=== PATIENT | male | born 1945 | race Caucasian/White ===

== ENCOUNTER → 2018-01-24 | Emergency (ER) | payer MEDICARE, OTHER ==
[~2018-01-24] VITALS: Ht 175.3 cm; Wt 85.3 kg
[~2018-01-24] MED LIST: ASP81CT PO; ASPIRIN 81 MG CHEW (CHILDREN'S ASA) PO ONE; FENO145T2 PO; HEParin 1000 UNIT/ML (10ML VIAL) FOR BOLUS IV ONE; HEParin DRIP 25000 UNIT/500ML 500 ML IV ONE; HYTRIN; LSNP10T PO; MTP25TSR PO; NAPR-243 PO; NITROGLYCERIN 2% OINT 1 GM UNIT DOSE PACKET TOP ONE; NS IV 1000 ML 1,000 ML IV ONE; NS IV 1000 ML 1,000 ML ONE; morphine INJ 10 MG/ML 1ML (SYR OR VIAL) IVP STA
[2018-01-24] MEDS: NITROGLYCERIN 0.4 MG SL TABS BTL 25'S SL PRN ×3 (00:27→00:58)
[2018-01-24 00:36] LABS: BASOPHILS % (AUTO) 0 % (0-10); EOSINOPHILS # (AUTO) 0.2 10^3/uL (0.0-0.3); EOSINOPHILS % (AUTO) 3 % (0-10); HEMATOCRIT 40 % (40-54); HEMOGLOBIN 14.5 G/DL (13.3-17.7); LYMPHOCYTES # (AUTO) 3.4 X 10^3 (1.0-4.0); LYMPHOCYTES % (AUTO) 46 % (12-44); MEAN CORPUSCULAR HEMOGLOBIN 33 PG (25-34); MEAN CORPUSCULAR HGB CONC 36 G/DL (32-36); MEAN CORPUSCULAR VOLUME 91 FL (80-99); MEAN PLATELET VOLUME 8.5 FL (7.4-10.4); MONOCYTES # (AUTO) 0.7 X 10^3 (0.0-1.0); MONOCYTES % (AUTO) 9 % (0-12); NEUTROPHILS # (AUTO) 3.1 X 10^3 (1.8-7.8); NEUTROPHILS % (AUTO) 42 % (42-75); PLATELET COUNT 204 10^3/uL (130-400); RED BLOOD COUNT 4.43 10^6/uL (4.35-5.85); RED CELL DISTRIBUTION WIDTH 13.3 % (10.0-14.5); WHITE BLOOD COUNT 7.3 10^3/uL (4.3-11.0)
[2018-01-24 00:37] LABS: PROTHROMBIN TIME PATIENT 12.6 SEC (12.2-14.7)
[2018-01-24 00:49] LABS: ALANINE AMINOTRANSFERASE 18 U/L (0-55); ALBUMIN 4.2 GM/DL (3.2-4.5); ALKALINE PHOSPHATASE 66 U/L (40-136); AMYLASE 59 U/L (25-125); BILIRUBIN,TOTAL 0.5 MG/DL (0.1-1.0); BUN/CREATININE RATIO 10; CALCIUM 9.4 MG/DL (8.5-10.1); CARBON DIOXIDE 23 MMOL/L (21-32); CHLORIDE 101 MMOL/L (98-107); CREATINE KINASE 930 U/L (30-200); CREATININE SERUM 1.54 MG/DL (0.60-1.30); GFR ESTIMATED 45; GLUCOSE 137 MG/DL (70-105); LIPASE 58 U/L (8-78); MAGNESIUM 1.9 MG/DL (1.8-2.4); POTASSIUM 4.5 MMOL/L (3.6-5.0); SODIUM 137 MMOL/L (135-145); TOTAL PROTEIN 6.9 GM/DL (6.4-8.2)
[2018-01-24 00:57] LABS: MYOGLOBIN SERUM 192.9 NG/ML (10.0-92.0)
[2018-01-24 01:00] LABS: CREATINE KINASE MB 7.4 NG/ML (<6.6)
--- NOTE | 2018-01-24 01:53 | ED Chest Pain ---
General Chief Complaint: Chest Pain Stated Complaint: CP,LEFT ARM PAIN,SOB Nursing Triage Note: Pt ambulated to rm 6. Pt c/o chest pain/discomfort that began several weeks ago. Pt has hx of heart attack and states pt has just been feeling "different. " Pt c/o radiation down the L arm. Pt took one nitro prior to arrival, but states the nitro was approximately 9 years old and was swallowed with water. Nursing Sepsis Screen: No Definite Risk Source: patient (VERY VAGUE HISTORIAN) History of Present Illness Date Seen by Provider: Jan 24, 2018 Time Seen by Provider: 00:11 Initial Comments PT ARRIVES VIA POV FROM HOME C/O CHEST PAIN OFF AND ON FOR THE LAST COUPLE OF DAYS BEGAN HAVING PAIN INTO HIS LEFT ARM TODAY HAS BEEN HAVING SHORTNESS OF BREATH OFF AND ON THE LAST COUPLE OF WEEKS NO SWEATS NO NAUSEA/VOMITING NO PALPITATIONS NO SYNCOPE NO SWELLING IN LEGS/ FEET OR PAIN IN CALVES PT UNABLE TO STATE IF SYMPTOMS ARE WORSENED BY ANYTHING, BUT PT HAS BEEN DEER HUNTING THIS WEEK--WALKING AT LEAST 1/[address] 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 PT STATES THIS PAIN IS THE SAME, BUT JUST NOT SEVERE WITH HIS HEART ATTACKS PT STATES HE TOOK NTG X 1 AT 1900---STATES HE "THINKS IT MIGHT HAVE HELPED A LITTLE" ( HOWEVER, PT STATES THAT RX WAS 9 YEARS OLD AND HE SWALLOWED IT LIKE A REGULAR PILL, WITH WATER ) Allergies and Home Medications Allergies Coded Allergies: ARICANo Known Allergies (Unverified Allergy, Mild, 08/02/08) Home Medications Aspirin 81 Mg Chew, 81 MG PO DAILY, (Reported) Fenofibrate,Micronized 145 Mg Tablet, 1 EACH PO DAILY, (Reported) Lisinopril 10 Mg Tab, 10 MG PO DAILY, (Reported) Metoprolol Succinate 25 Mg Tab.sr.24h, 1 EACH PO MWD, (Reported) Naproxen 500 Mg Tablet, 1 EACH PO DAILY PRN, (Reported) Patient Home Medication List Home Medication List Reviewed: Yes Review of Systems Review of Systems Constitutional: no symptoms reported; No chills, No diaphoresis, No dizziness, No fever, No malaise, No weakness Respiratory: See HPI, Shortness of Air, SOA With Exertion, SOA at Rest Cardiovascular: See HPI, Chest Pain; Denies Edema, Denies Irregular Heart Rate , Denies Lightheadedness, Denies Palpitations, Denies Syncope Gastrointestinal: No Symptoms Reported; Denies Abdominal Pain, Denies Nausea, Denies Vomiting Genitourinary: No Symptoms Reported Musculoskeletal: see HPI, other (LEFT ARM PAIN ) Skin: no symptoms reported Psychiatric/Neurological: No Symptoms Reported Endocrine: No Symptoms Reported Hematologic/Lymphatic: No Symptoms Reported Past Ckdvmlz-Psjexv-Aisyan Hx Patient Social History Alcohol Use: Occasionally Uses Recreational Drug Use: No Smoking Status: Never a Smoker 2nd Hand Smoke Exposure: No Recent Foreign Travel: No Contact w/Someone Who Travel: No Recent Infectious Disease Expo: No Recent Hopitalizations: Yes Physical Abuse: No Sexual Abuse: No Past Medical History Surgeries: Yes (CARDIAC CATHS WITH STENTS X 4) Cardiac, Coronary Stent Respiratory: No Cardiac: Yes (GA X 2; STENTS X 4) Coronary Artery Disease, Heart Attack, High Cholesterol, Hypertension Neurological: No Reproductive Disorders: No Gastrointestinal: Yes Gastroesophageal Reflux Musculoskeletal: Yes Arthritis Endocrine: No Cancer: No Psychosocial: No Integumentary: No Blood Disorders: No Physical Exam Vital Signs Vital Signs - First Documented 01/24/18 00:11 Temp 97.6 Pulse 65 Resp 15 B/P (MAP) 158/93 (114) Pulse Ox 100 O2 Delivery Room Air Capillary Refill : Less Than 3 Seconds Height, Weight, BMI Height: 5'9.00" Weight: 188lbs. oz. 85.960791hu; BMI Method:Stated General Appearance: No Apparent Distress, WD/WN Neck: Full Range of Motion, Normal Inspection, Non Tender, Supple; No Carotid Bruit, No JVD Respiratory: Chest Non Tender, Normal Breath Sounds, No Accessory Muscle Use, No Respiratory Distress Cardiovascular: Regular Rate, Rhythm, No Edema, No Gallop, No JVD, No Murmur, Normal Peripheral Pulses Gastrointestinal: Normal Bowel Sounds, No Organomegaly, No Pulsatile Mass, Non Tender, Soft Extremity: Normal Capillary Refill, Normal Inspection, Normal Range of Motion, Non Tender, No Calf Tenderness, No Pedal Edema Neurologic/Psychiatric: Alert, Oriented x3, No Motor/Sensory Deficits, Normal Mood/Affect, hydrochloric acid operator II-XII Norm as Tested Skin: Normal Color, Warm/Dry Progress/Results/Core Measures Results/Orders Lab Results Laboratory Tests Test 01/24/18 00:17 Range/Units White Blood Count 7.3 4.3-11.0 10^3/uL Red Blood Count 4.43 4.35-5.85 10^6/uL Hemoglobin 14.5 13.3-17.7 G/DL Hematocrit 40 40-54 % Mean Corpuscular Volume 91 80-99 FL Mean Corpuscular Hemoglobin 33 25-34 PG Mean Corpuscular Hemoglobin Concent 36 32-36 G/DL Red Cell Distribution Width 13.3 10.0-14.5 % Platelet Count 204 130-400 10^3/uL Mean Platelet Volume 8.5 7.4-10.4 FL Neutrophils (%) (Auto) 42 42-75 % Lymphocytes (%) (Auto) 46 H 12-44 % Monocytes (%) (Auto) 9 0-12 % Eosinophils (%) (Auto) 3 0-10 % Basophils (%) (Auto) 0 0-10 % Neutrophils # (Auto) 3.1 1.8-7.8 X 10^3 Lymphocytes # (Auto) 3.4 1.0-4.0 X 10^3 Monocytes # (Auto) 0.7 0.0-1.0 X 10^3 Eosinophils # (Auto) 0.2 0.0-0.3 10^3/uL Basophils # (Auto) 0.0 0.0-0.1 10^3/uL Prothrombin Time 12.6 12.2-14.7 SEC INR Comment 1.0 0.8-1.4 Activated Partial Thromboplast Time 26 24-35 SEC Sodium Level 137 135-145 MMOL/L Potassium Level 4.5 3.6-5.0 MMOL/L Chloride Level 101 98-107 MMOL/L Carbon Dioxide Level 23 21-32 MMOL/L Anion Gap 13 5-14 MMOL/L Blood Urea Nitrogen 15 7-18 MG/DL Creatinine 1.54 H 0.60-1.30 MG/DL Estimat Glomerular Filtration Rate 45 BUN/Creatinine Ratio 10 Glucose Level 137 H 70-105 MG/DL Calcium Level 9.4 8.5-10.1 MG/DL Corrected Calcium 9.2 8.5-10.1 MG/DL Magnesium Level 1.9 1.8-2.4 MG/DL Total Bilirubin 0.5 0.1-1.0 MG/DL Aspartate Amino Transf (AST/SGOT) 30 5-34 U/L Alanine Aminotransferase (ALT/SGPT) 18 0-55 U/L Alkaline Phosphatase 66 40-136 U/L Total Creatine Kinase 930 H 30-200 U/L Creatine Kinase MB 7.4 *H <6.6 NG/ML Myoglobin 192.9 H 10.0-92.0 NG/ML Troponin I < 0.30 <0.30 NG/ML B-Type Natriuretic Peptide 25.0 <100.0 PG/ML Total Protein 6.9 6.4-8.2 GM/DL Albumin 4.2 3.2-4.5 GM/DL Amylase Level 59 25-125 U/L Lipase 58 8-78 U/L My Orders Orders - BRIONNA YANG DO Cbc With Automated Diff (01/24/18) Magnesium (01/24/18) Chest 1 View, Ap/Pa Only (01/24/18) Ekg Tracing (01/24/18) Cardiac Profile 1 (01/24/18) Comprehensive Metabolic Panel (01/24/18) Myoglobin Serum (01/24/18) Protime With Inr (01/24/18) Partial Thromboplastin Time (01/24/18) O2 (01/24/18) Monitor-Rhythm Ecg Trace Only (01/24/18) Lipid Panel (01/25/18 06:00) Aspirin Chewable Tablet (Baby Aspirin Ch (01/24/18:30) Nitroglycerin 0.4 Mg Btl 25's (Nitrostat (01/24/18:30) Saline Lock/Iv-Start (01/24/18:) Creatine Kinase (01/24/18:) Creatine Kinase Mb (01/24/18) Lipase (01/24/18:) Amylase (01/24/18) BNP (01/24/18:) Ns Iv 1000 Ml (Sodium Chloride 0.9%) (01/24/18 00:44) Saline Lock/Iv-Start (01/24/18 00:44) Ns Iv 1000 Ml (Sodium Chloride 0.9%) (01/24/18 00:44) Morphine Injection (Morphine Injection (01/24/18 00:56) Heparin Drip 60387 Unit/500ml (Heparin (01/24/18 01:35) Heparin (Bolus Per Protocol) (Heparin (B (01/24/18 01:35) Nitroglycerin Ointment (Nitrobid Ointme (01/24/18 01:45) Morphine Injection (Morphine Injection (01/24/18 01:40) Morphine Injection (Morphine Injection (01/24/18 03:13) Medications Given in ED Current Medications Medications Dose Ordered Sig/Teofilo Route Start Time Stop Time Status Last Admin Dose Admin Aspirin 324 mg ONCE ONCE PO 01/24/18 00:30 01/24/18 00:31 DC 01/24/18 00:26 324 MG Heparin Sodium (Porcine) HEPARIN BOLUS ACS PROTOC... 0135 ONCE IV 01/24/18 01:35 01/24/18 01:37 DC 01/24/18 02:13 5,000 UNIT Heparin Sodium/ Dextrose 500 ml @ 0 mls/hr Q0M ONCE IV 01/24/18 01:35 01/24/18 01:37 DC 01/24/18 02:40 20 MLS/HR Nitroglycerin 0.4 mg UD PRN SL 01/24/18 00:30 01/24/18 00:59 DC 01/24/18 00:58 0.4 MG Nitroglycerin 0.5 inch ONCE ONCE TOP 01/24/18 01:45 01/24/18 01:47 DC 01/24/18 02:11 0.5 INCH Sodium Chloride 1,000 ml @ 0 mls/hr Q0M ONCE IV 01/24/18 00:44 01/24/18 00:45 DC 01/24/18 00:45 1,000 MLS/HR Vital Signs/I&O 01/24/18 01/24/18 00:11 00:11 Temp 97.6 Pulse 65 Resp 15 B/P (MAP) 158/93 (114) Pulse Ox 100 O2 Delivery Room Air Room Air Blood Pressure Mean: 114 Progress Progress Note : Progress Note MILD RELIEF OF PAIN WITH NTG X 3--STATES PAIN IN CHEST IS BETTER, BUT NOT GONE. STATES HE STILL HAS ALOT OF PAIN IN HIS LEFT ARM PT REPEATEDLY REFUSED MORPHINE, OR ANYTHING ELSE FOR PAIN, DESPITE ENCOURAGEMENT FROM STAFF AND FAMILY. STATES THAT HE IS STILL HAVING PAIN, BUT "HE CAN HANDLE IT" PT EVENTUALLY AGREED TO PAIN MEDICATION JUST PRIOR TO EMS ARRIVAL FOR TRANSPORT. PAIN IMPROVING BUT IS NOT GONE AT TIME OF TRANSFER. NO DETERIORATION IN PT'S CONDITION DURING ER STAY Initial ECG Impression Date: Jan 24, 2018 Initial ECG Impression Time: 00:14 Initial ECG Rate: 67 Initial ECG Rhythm: Normal Sinus (LAFB, OLD Q WAVES ANTERIORLY/INFERIORLY) Initial ECG Comparisson: Unchanged Diagnostic Imaging Comments CXR--NO ACUTE PROCESS, PENDING RADIOLOGIST REVIEW Reviewed: Reviewed by Me Departure Communication (Admissions) THIS [facility] IS CURRENTLY ON COMPLETE DIVERSION 0125--CALLED [facility] DIRECT CALL. PAGING CHANNEL EXECUTIVE MOBILE PARAMEDICAL EXAMINER 1032--SPOKE WITH DR. ANTUNEZ, ACCEPTS PT FOR ADMIT. ADVISES 1/2" NITROPASTE AND HEPARIN BOLUS AND DRIP. Impression Primary Impression: Chest pain Disposition: 02 XFER [facility] Condition: Improved Departure-Patient Inst. Referrals: NO,LOCAL PHYSICIAN (PCP/Family) Primary Care Physician BRIONNA YANG DO Jan 24, 2018 01:53
[2018-01-24 03:40] VITALS: BP 112/71
--- NOTE | 2018-01-24 07:01 | Diagnostic Imaging Report ---
Indication: Chest pain. Comparison: 02/20/2012. Discussion: Single portable upright view of the chest was obtained. Stable normal heart size. No focal consolidation, pleural fluid, or pneumothorax. Postoperative changes are incompletely viewed within the cervical spine. Impression: 1. Negative chest. Dictated by: Dictated on workstation # [id number]
== END | disposition short-term general hospital (02) ==
LOC: EDUNIT# 00:09 → ER 00:12
DX: R07.9 Chest pain, unspecified (principal); I25.2 Old myocardial infarction; I25.10 Atherosclerotic heart disease of native coronary artery without angina pectoris; E78.00 Pure hypercholesterolemia, unspecified; I10 Essential (primary) hypertension; K21.9 Gastro-esophageal reflux disease without esophagitis; Z95.5 Presence of coronary angioplasty implant and graft; Z79.82 Long term (current) use of aspirin
CPT/HCPCS: 36415; 71045; 80053; 82150; 82550; 82553; 83690; 83735; 83874; 83880; 84484; 85025; 85610; 85730; 93005; 93041